=== PATIENT | female | born 1995 | race Caucasian/White ===

== ENCOUNTER → 2018-11-15 | Outpatient (CLI) | payer OTHER ==
[~2018-11-15] VITALS: Ht 154.9 cm; Wt 52.2 kg
[~2018-11-15] MED LIST: BACLOFEN20 MG PO; CELEXA20 MG PO; CLARITIN10 MG PO; CURCUMIN1 GM PO; DASETTA1 EACH PO; DIAZEPAM 10 MG10 M2 PO; EMGALITY120 MG/1 M SUBQ; FOLIC ACID1 MG PO; LIDOCAINE1 EACH TRANSDERM; MAG GLYCINATE100 MG PO; MELATONIN1 M1 PO; MIRALAX17 G1 PO; NEURONTIN 300300 M1 PO; OMEPRAZOLE40 MG PO; PREDNISONE 10 M10 MG PO; SINGULAIR 10 MG10 M1 PO; SYNTHROID88 MCG PO; TRAMADOL 50 MG50 MG PO; VITAMIN D3400 UNIT PO; ZANAFLEX2 MG PO; [UNRECOGNIZED DRUG - OTHER] PO; [UNRECOGNIZED DRUG - OTHER] PO
[2018-11-15 10:49] VITALS: BP 116/73
--- NOTE | 2018-11-15 11:48 | NUR ---
Pain Clinic Assessment: 1. History of Osteoarthritis: History of Rheumatoid Arthritis: 2. Height: 5 ft. 1 in. 154.9 cm. Weight: 115.0 lb. oz. 52.164 kg. Patient's BMI: 21.7 3. Vital Signs: BP: 116/73 Pulse: 94 Resp: 14 Temp: 02 Sat: 98 ECG Mon: 4. Pain Intensity: 6-7 5. Fall Risk: Dizziness: Y Needs help standing or walking: Y Fallen in the last 3 months: N Fall risk comments: 6. Patient on Blood Thinner: None 7. History of Hypertension: N 8. Opioid Therapy greater than 6 weeks: N Opiate Contract Signed: 9. Risk Assessment Tool Provided: 10. Functional Assessment Tool: 11. Recreational Drug Use: Never Drug Type: Tobacco Use: Never Smoker Tobacco Type: Amount or Packs/day: How Many Years: Alcohol Use: No Frequency: Quant:
--- NOTE | 2018-11-23 15:29 | HPC ---
[facility] [place] [email or web address] [address] PAIN MANAGEMENT CONSULTATION Name: MARQUEZJUAN DANIEL SENIORNA Room #: REG [facility] Nkechi.#: [id number] Admission: 11/15/18 ������������������ Attend Phys: Howard Yee MD Discharge: ������������������ Date of : [birth year] Report #: [id number] THIS REPORT FOR: //name// CC: Juan Daniel Yee DO [facility] physician/PCP Ludwig Yee DATE OF SERVICE: 11/15/2018 CHIEF COMPLAINT: Chronic pain all over and increasing neck pain following placement of intrathecal catheter. The patient is a 23-year-old wheelchair bound female who has cerebral palsy. She has had chronic spasticity, which has at times been extremely severe. The patient and her family described severe arching of her back within her wheelchair and tension throughout her lower extremities that has improved since placement of an intrathecal infusion pump. She had intrathecal therapy dating back 10 years or so, but had a revision and Dr. Michel was required to replace her catheter in the cervical region. She has had some increasing neck pain since placement, but overall the catheter is functioning well. Current catheter has been in place now for over 6 months. Pain continues. She has had extensive thoracic surgery with pedicle screws noted at T4-T5 and also inferiorly at T12-L1 attached to long rods. Superior hooks near the T2 and T3 levels are poorly evaluated by the recent x-rays that she brings to the clinic. Cord seems to be fine. There is no abnormality. There was some consideration given to facet arthropathy at this T2-T3 level given the location of her fusion. Today, the patient complains of pain much higher than that into her neck and radiating up towards the occiput. She describes it as a 6-7 in intensity, constant, steady, continuous and aching. In addition, she has pain throughout her torso and extremities. On more than one occasion, she said that she felt weak and painful related to muscle spasms throughout her body. She clearly has diffuse chronic pain. MEDICATIONS: Oral baclofen 20 mg 3 times a day, intrathecal baclofen now at 1316 mcg per day, Celexa, Diceta tablet, Emgality injections, gabapentin 300 mg t.i.d., Lidoderm patches in various locations, melatonin, Singulair, omeprazole, MiraLax, prednisone 10 mg, currently on a tapering dose, Synthroid, tizanidine, tramadol 50 mg p.r.n., Valium 10 mg prior to Botox injections, folic acid, multiple vitamins. ALLERGIES: BENADRYL AND BACTRIM. PAST MEDICAL HISTORY: Remarkable for multiple surgeries including hip [facility] [address] [place] [address] PAIN MANAGEMENT CONSULTATION Name: JOSEPH PATHAK Room #: REG [facility] M.Valorie.#: [id number] Admission: 11/15/18 ������������������ Attend Phys: Howard Yee MD Discharge: ������������������ Date of : [birth year] Report #: [id number] surgeries, baclofen placement first in 2003 with revision in 2005. A second baclofen pump in 2007 removed in 2009, she had rods placed in 2009 in her thoracic spine, cholecystectomy in 2009, followed by pancreatitis, meningitis. New baclofen pump placed 2017 with revision of pump placement in 08/2018. 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 She has started back to work on 11/14/2018. She denies use of tobacco or alcohol. She lives with her parents who are here today and supportive. PHYSICAL EXAMINATION: GENERAL: She is a feisty well spoken 23-year-old with cerebral palsy. VITAL SIGNS: Her blood pressure is 116/73, heart rate 74, respirations 14, O2 sat 98. She is 5 feet 1 inch, 115 pounds with a BMI of 21.7. HEENT: Pupils are equal, round, reactive to light. EOMs are intact. She holds her head in slight extension and slightly rotated to the left. Her neck reveals spasticity, but this is mild. She has tenderness throughout the cervical spine, worse on the left involving the trapezius, the cervicalis and splenius capitis. CHEST: Clear to auscultation. CARDIAC: Rhythm was regular. ABDOMEN: Soft. LOWER EXTREMITIES: Significantly spastic with some contractures noted in the knees. Sensation intact throughout the upper and lower extremities. Intrathecal pump is in the lower abdomen. IMPRESSION: 1. Chronic intractable pain with spasticity. Great deal of her pain is related to her spasticity, cerebral palsy and myofascial components. She also has skeletal pain related to extensive thoracic rods and there may be some instability above the fusion. RECOMMENDATIONS: 1. The intrathecal pump is in place and I would strongly recommend the combination of baclofen along with a very low dose of an opioid. Both are approved for use in the intrathecal pump and although there is some resistance to using combination of medications, there is consensus amongst specialists who provide intrathecal therapies that it is a reasonable approach and we have had decades of experience in doing so with patients who suffer from chronic pain. Given her sensitivity to medications, I would recommend the following. At next pump refill, consider filling with only 5 mL of solution containing baclofen and morphine with the daily dose of baclofen remaining stable and the addition of 0.1 mg of morphine per day. After trial of 1 month, if there is no improvement in pain, the pump can be refilled with 5 mL of the same with increase of morphine to 0.2 mg per day. In this fashion over a course of 6-12 months, I would gradually increase the morphine dose as she tolerates. Many patients responded very favorably to low dose intrathecal morphine, which has a [facility] [address] [place] [address] PAIN MANAGEMENT CONSULTATION Name: JOSEPH PATHAK Room #: REG [facility] Nkechi.#: [id number] Admission: 11/15/18 ������������������ Attend Phys: Howard Yee MD Discharge: ������������������ Date of : [birth year] Report #: [id number] substantial analgesic effect due to its spinal effects and attachment to the spinal cord. This was discussed with the family. They have great rancho and appreciation for the excellent care provided by Dr. Yee. I have provided my thoughts only as a second opinion. They can discuss this further with her treating physician. There were some questions about the use facet injections. These can be helpful, but my suspicion is that they would be only temporarily helpful for one of her many pains and I believe that this would be inadequate use of resource or time. Followup visit planned as needed. ��������������������������������������������� <ELECTRONICALLY SIGNED> ���������������������������������������� By: Howard Yee MD ��������������������������������������������� 11/23/18 [id number] [id number] Howard Yee MD /nt
== END ==
LOC: PAIN 07:09
DX: G89.4 Chronic pain syndrome (principal); M54.2 Cervicalgia; G80.9 Cerebral palsy, unspecified; Z79.899 Other long term (current) drug therapy